=== PATIENT | female | born 1960 | race Caucasian/White ===

== ENCOUNTER → 2019-12-07 13:50 | Outpatient (CLI) | payer OTHER, SELFPAY ==
[2015-03-03 21:13] VITALS: BMI 34.2
== END ==
PROVIDERS: Referring Provider Family Medicine; Visit Provider Family Medicine
DX: Z11.59 Encounter for screening for other viral diseases (principal)
CPT/HCPCS: 87635; U0003

== ENCOUNTER → 2019-12-21 11:24 | Outpatient (CLI) | payer OTHER, SELFPAY ==
[2015-03-03 21:13] VITALS: BMI 34.2
== END ==
PROVIDERS: Referring Provider Family Medicine; Visit Provider Family Medicine
DX: Z11.59 Encounter for screening for other viral diseases (principal)
CPT/HCPCS: 87635; U0003

== ENCOUNTER → 2020-01-01 12:48 | Outpatient (CLI) | payer OTHER, SELFPAY | PROVIDERS: Visit Provider Family Medicine | DX: Z03.818 Encounter for observation for suspected exposure to other biological agents ruled out (principal) | CPT/HCPCS: 87635; U0003 ==

== ENCOUNTER → 2020-01-04 12:27 | Outpatient (CLI) | payer OTHER, SELFPAY ==
[2015-03-03 21:13] VITALS: BMI 34.2
== END ==
PROVIDERS: Referring Provider Family Medicine; Visit Provider Family Medicine
DX: Z03.818 Encounter for observation for suspected exposure to other biological agents ruled out (principal)
CPT/HCPCS: 87635; U0003

== ENCOUNTER → 2020-01-18 10:34 | Outpatient (CLI) | payer OTHER, SELFPAY ==
[2015-03-03 21:13] VITALS: BMI 34.2
== END ==
PROVIDERS: Referring Provider Family Medicine; Visit Provider Family Medicine
DX: Z03.818 Encounter for observation for suspected exposure to other biological agents ruled out (principal)
CPT/HCPCS: 87635; U0003

== ENCOUNTER → 2020-02-01 12:07 | Outpatient (CLI) | payer OTHER, SELFPAY ==
[2015-03-03 21:13] VITALS: BMI 34.2
== END ==
PROVIDERS: Referring Provider Family Medicine; Visit Provider Family Medicine
DX: Z03.818 Encounter for observation for suspected exposure to other biological agents ruled out (principal)
CPT/HCPCS: 87635; U0003

== ENCOUNTER 2022-09-13 08:55 | Emergency (ER) | payer OTHER, SELFPAY ==
[2022-09-13] VITALS (8 sets, daily range): BP systolic 102–191; BP diastolic 61–111; PULSE 50–59; RESP 14–19; TEMP 36.3; O2SAT 95–100
--- NOTE | 2022-09-13 08:59 | CT_ITS ---
HISTORY: Change in Mental Status. TECHNIQUE: Multiple axial images were obtained of the head without intravenous contrast. A radiation dose optimization technique was used for this scan. 239 images. COMPARISON: None. FINDINGS: BRAIN PARENCHYMA: No significant attenuation abnormality. No acute intra-axial hemorrhage. CSF SPACES: Cerebral ventricles, cortical sulci, and other extra-axial CSF spaces within normal limits in size for age. No midline shift or other significant mass effect. No acute extra-axial hemorrhage. Small calcification at the interventricular septum. OTHER: Intact calvarium. Chronic appearing right C1-2 fractures with mild mass effect on the craniocervical junction. No significant air fluid levels in the paranasal sinuses or mastoid air cells. Unremarkable orbits. CT/Brain/Head without Contrast IMPRESSION: No acute intracranial process identified. Electronically Signed: Barbi Estevez MD at 10:10 EDT ,
--- NOTE | 2022-09-13 08:59 | RAD_ITS ---
HISTORY: AMS. TECHNIQUE: XR Chest 1 View. COMPARISON: 03/03/2015. FINDINGS: CARDIOMEDIASTINAL BORDERS: Cardiac silhouette within normal limits in size. Mediastinal contour unremarkable with calcification of the aortic knob. LUNGS: Radiographically clear. PLEURA: No pleural effusion or pneumothorax seen. OSSEOUS STRUCTURES: Mild degenerative change. RAD/Chest 1 View (Portable) IMPRESSION: No acute cardiopulmonary process identified. Electronically Signed: Barbi Estevez MD at 10:11 EDT ,
--- NOTE | 2022-09-13 08:59 | EKG12_ITS ---
Test Reason : UNRESPONSIVE Blood Pressure : / mmHG Vent. Rate : 058 BPM Atrial Rate : 058 BPM P-R Int : 212 ms QRS Dur : 104 ms QT Int : 432 ms P-R-T Axes : 079 012 052 degrees QTc Int : 424 ms Sinus bradycardia with 1st degree A-V block Otherwise normal ECG Confirmed by HAI RICE, BERNADETTE ([id number]), editor in chief SULEMA MEHTA ([id number]) on 09/15/2022 9:08:56 AM Referred By: Confirmed By:BERNADETTE VALLES MD
[2022-09-13] MEDS: Ziprasidone IM 20 MG/ML VIAL IM (09:04)
[2022-09-13 09:21] LABS: Absolute Lymphocyte Count 2.44 X10^3/uL (0.83-4.51); Absolute Neutrophil Count 17.4 X10^3/uL (2.0-7.7); Basophil# 0.09 X10^3/uL; Basophil% 0.4 % (0-1); Eosinophil# 0.11 X10^3/uL; Eosinophils% 0.5 % (0-5); Hematocrit 43.4 % (37-47); Hemoglobin 15.3 g/dL (12.0-15.0); Lymphocyte # 2.44 X10^3/ul (0.83-4.51); Lymphocyte % 11.6 % (19-41); Mean Corp Hgb Conc 35.3 g/dL (32-36); Mean Corpuscular Hgb 30.4 pg (27.0-32.0); Mean Corpuscular Volume 86.3 fL (81-99); Monocyte# 0.97 X10^3/uL; Monocyte% 4.6 % (0-10); NRBC Flagged by Analyzer 0 % (0-5); Neutrophil # 17.36 X10^3/uL (2.7-7.7); Neutrophil % 82.5 % (47-70); Platelet Count 370 K/mm3 (150-450); RBC Distribution Width CV 12.1 % (11.6-14.6); RBC Distribution Width SD 38.5 fl (35.1-43.9); Red Blood Count 5.03 M/mm3 (4.2-5.4); White Blood Count 21.1 K/mm3 (4.4-11.0)
--- NOTE | 2022-09-13 09:22 | ED.RN ---
PT ARRIVES [facility]IA [facility], ON ARRIVAL TO ED SHE IS SCREAMING OUT AND THRASHING AROUND, SCRATCHING AND HITTING AT STAFF. THIS RN MAKES ATTEMPTS TO VERBALLY DE-ESCALATE PT. PT CONTINUES TO SCREAM , , . THIS RN ORIENTS PT TO LOCATION, TIME, AND DATE. PT CONTINUES TO THRASH ARMS AND LEGS, HITTING HEIDI MILLER. PT PLACED IN SOFT WRIST RESTRAINTS. DR. MAURICIO INFORMED.
[2022-09-13 09:38] LABS: Alcohol, Blood (Medical)-Serum < 3.0 mg/dL
--- NOTE | 2022-09-13 09:38 | ED.RN ---
pt going to imaging at this time, rn asked patient if she will stay calm in CT if I remove the restraints? Pt agrees. Restraints removed at this time.
--- NOTE | 2022-09-13 09:38 | ED.RN ---
TALCER NOTIFIED OF RESTRAINT APPLICATION AT 09.
[2022-09-13 09:44] LABS: Bacteria 0 SEEN /hpf (None Seen); Mucous, Urine 0 SEEN /hpf (<or=2+); Red Blood Cells-Urine 0 SEEN /hpf (0-5); Squamous Epithelial Cells - UA 0 SEEN /hpf (5-10); White Blood Cells 0 SEEN /hpf (0-5)
[2022-09-13 09:48] LABS: ALB/GLOB Ratio 1.1 RATIO (0.9-2.4); AST(SGOT) 19 U/L (15-37); Alanine Aminotransfer ALT/SGPT 24 U/L (13-56); Albumin, Serum 3.4 g/dL (3.2-5.0); Alkaline Phosphatase 132 U/L (45-117); Anion Gap 8 (5-15); BUN 12 mg/dL (7-18); BUN/Creat Ratio 13.9 RATIO (10-20); Calcium,Total 8.9 mg/dL (8.5-10.1); Chloride 106 mmol/L (98-107); Color, Urine Yellow (Yellow); Creatinine, Serum 0.86 mg/dL (0.55-1.02); EST Glomerular Filtration Rate 70 mL/min (>60); Est Glom Filt Rate - Afr Amer 85 mL/min (>60); Estimated Creatinine Clearance 81.91 ml/min; Globulin 3.2 g/dL (2.2-4.2); Glucose 182 mg/dL (74-106); Glucose, Dipstick Normal (Normal); Ketone-Dipstick 5 mg/dl (Negative); Leukocyte Esterase-Dipstick Negative /ul (Negative); Nitrite-Dipstick Negative (Negative); Occult Blood-Urine Negative /ul (Negative); Potassium 4.7 mmol/L (3.5-5.1); Protein, Total 6.6 g/dL (6.4-8.2); Protein-Dipstick 30 mg/dl (Negative); Sodium Level 136 mmol/L (136-145); Specific Gravity, Urine 1.015 (1.002-1.030); Urine Clarity Clear (Clear); Urine Urobilinogen Normal (Normal)
[2022-09-13 09:55] LABS: Amorphous Sediment 1+; Urine Bilirubin Dipstick 1 mg/dL (Negative)
[2022-09-13 10:02] LABS: Amphetamine Urine VISTA NEGATIVE (<1000 ng/mL); Barbiturate Urine VISTA NEGATIVE (< 200 ng/mL); Benzodiazepine Urine VISTA NEGATIVE (< 200 ng/mL); Cocaine Urine VISTA NEGATIVE (< 300 ng/mL); Ecstacy Urine VISTA NEGATIVE (< 500 ng/mL); Methadone Urine VISTA NEGATIVE (< 300 ng/mL); PCP Urine VISTA NEGATIVE (< 25 ng/mL); THC Urine VISTA NEGATIVE (< 50 ng/mL); Vista UDS pH Range 7
[2022-09-13] MEDS: levETIRAcetam IV 1,000 MG/100 ML BAG 400 MG IV (13:26)
--- NOTE | 2022-09-13 13:42 | EDS_ITS ---
HPI History of Present Illness Chief Complaint: Alt LOC Narrative Narrative: 61-year-old female presenting with altered mental status. Per squad report the patient was unresponsive. On arrival to the ER she is scratching at people and hitting people. She is screaming. She is unable to give me a history. PFSH PFS Medical History Anxiety Hypertension Home Medications clonazepam 1 mg tablet 0.1 mg PO DAILY 09/13/22 [History Last Taken Unknown] clonazepam 1 mg tablet 1 mg PO QHS 09/13/22 [History Last Taken Unknown] clonidine HCl 0.2 mg tablet 0.2 mg PO QHS 09/13/22 [History Last Taken Unknown] fluoxetine 40 mg capsule 40 mg PO DAILY 09/13/22 [History Last Taken Unknown] hydroxyzine HCl 25 mg tablet 25 mg PO BID PRN Anxiety 09/13/22 [History Last Taken Unknown] lisinopril 10 mg tablet 10 mg PO DAILY 09/13/22 [History Last Taken Unknown] lorazepam 0.5 mg tablet 0.5 mg PO Q8H 09/13/22 [History Last Taken Unknown] Allergy/AdvReac Type Severity Reaction Status Date / Time No Known Allergies Allergy Verified 03/03/15 21:17 Social History Smoking Status: Never smoker ROS ROS ED Review of Systems ROS Unobtainable: due to mental status EXAM Physical Exam Const Vital Signs: 09/13/22 08:58 09/13/22 08:57 09/13/22 09:50 Temperature 97.3 F L Temperature Source Temporal Pulse Rate 54 L 59 L Respiratory Rate 18 17 Blood Pressure 191/111 H 135/96 H Blood Pressure Mean 137 109 Pulse Ox 100 97 Oxygen Delivery Method Room Air Room Air 09/13/22 10:23 09/13/22 11:25 09/13/22 12:00 Temperature Temperature Source Pulse Rate 57 L 55 L 51 L Respiratory Rate 14 16 16 Blood Pressure 127/84 H 111/76 102/61 Blood Pressure Mean 98 87 74 Pulse Ox 98 95 98 Oxygen Delivery Method Room Air Room Air Room Air 09/13/22 13:02 Temperature Temperature Source Pulse Rate 53 L Respiratory Rate 19 H Blood Pressure 114/62 Blood Pressure Mean 79 Pulse Ox 96 Oxygen Delivery Method Room Air Positive well nourished General Appearance ED: NAD; Negative for pallor HEENT Reports moist mucous membranes Eyes PERRL and EOMs intact bilaterally Resp normal respiratory effort and clear to auscultation bilaterally Auscultation: Negative for rales, rhonchi or wheezes Cardio regular rate and regular rhythm GI normal to inspection, nondistended, normoactive bowel sounds Extremity normal to inspection Neuro CN's II-XII intact bilaterally Sensorium / Orientation: orientation impaired Motor Exam: strength 5/5 throughout Skin no rashes or lesions noted and no wounds General Skin Exam: Negative for jaundice or pallor MDM MDM MDM Narrative Medical decision making narrative: Patient arrived with altered mental status. She did not arrive with family and EMS states that she was unresponsive. There is no evidence of trauma on exam. She was a little hypertensive but otherwise her vitals runs are stable. She is protecting her airway. She is very agitated and swinging and scratching at nurses. Patient had to be chemically sedated with Geodon and was put in restraints. Differential includes medication overdose, stroke, intracranial hemorrhage, seizure, electrolyte abnormalities, anemia, alcohol intoxication, hypoglycemia, ACS, pneumonia, UTI. CBC to assess white blood cell count, hemoglobin, platelets, differential. CMP to assess liver function, renal function, glucose, anion gap. EtOH to assess for alcohol. Urine drug screen to assess for drugs of abuse. EKG and high-sensitivity troponin to assess for ischemia. Chest x-ray to rule out pneumonia. CT brain to assess for brain injury. CBC shows a leukocytosis of 21.1. Hemoglobin 15.3, platelets 370. Bilirubin slightly elevated otherwise liver function normal. Renal function, electrolytes within normal limits. Glucose 182 without anion gap. Urinalysis negative for infection. Urine drug screen is negative. Patient's arrived and he tells me that she was recently released from [facility] where she was then there for several weeks for depression and anxiety and just been discharged home a couple of days ago. Initially she was doing well and then she started to get worse. This morning she requested that he come late with her and he states that she started to have head shaking and then tonic-clonic seizing. He states that then she went unresponsive and EMS came to pick her up. It is possible that she was postictal when I initially evaluated her. It is unclear why as she was swinging and scratching at people. She is on benzodiazepines and her talk screen is negative so it is possible that she had a seizure from not taking her clonazepam. Her CT brain was negative. There has been no repeated seizure activity. Chest x-ray on my interpretation showed no acute cardiopulmonary process. Radiologist interprets and agrees. EKG on my interpretation is sinus bradycardia with a first-degree AV block. No evidence of ischemia. After speaking with the family I reached out to [facility] as they have been taking care of her and they also have neurology care since the patient apparently had a seizure and would likely benefit from an EEG. I spoke with a Dr. Olivera who was a neurologist at [facility] and he recommended transfer. He recommended giving her a gram of Keppra. She is more awake and alert and she is less combative at this point. Her consented to her transport. Impression: 1. Seizure 2. Agitation 3. Leukocytosis Lab Data Labs: Laboratory Results - last 24 hr 09/13/22 09/13/22 09/13/22 09:14 09:14 09:14 WBC 21.1 H RBC 5.03 Hgb 15.3 H Hct 43.4 MCV 86.3 MCH 30.4 MCHC 35.3 RDW Std Deviation 38.5 RDW Coeff of Zuri 12.1 Plt Count 370 MPV 9.0 Immature Gran % (Auto) 0.400 Neut % (Auto) 82.5 H Lymph % (Auto) 11.6 L Pitkin % (Auto) 4.6 Eos % (Auto) 0.5 Baso % (Auto) 0.4 Absolute Neuts (auto) 17.4 H Absolute Lymphs (auto) 2.44 Nucleated RBC % 0 Sodium 136 Potassium 4.7 Chloride 106 Carbon Dioxide 22.0 Anion Gap 8 BUN 12 Creatinine 0.86 Estim Creat Clear Calc 81.91 Est GFR (MDRD) Af Amer 85 Est GFR (MDRD) Non-Af 70 BUN/Creatinine Ratio 13.9 Glucose 182 H Calcium 8.9 Total Bilirubin 1.10 H AST 19 ALT 24 Alkaline Phosphatase 132 H Total Protein 6.6 Albumin 3.4 Globulin 3.2 Albumin/Globulin Ratio 1.1 Urine Color Urine Clarity Urine pH Ur Specific Omega Urine Protein Urine Glucose (UA) Urine Ketones Urine Occult Blood Urine Nitrite Urine Bilirubin Urine Urobilinogen Ur Leukocyte Esterase Urine RBC Urine WBC Ur Squamous Epith Cells Amorphous Sediment Urine Bacteria Urine Mucus Urine Opiates Screen Urine Methadone Screen Ur Barbiturates Screen Ur Phencyclidine Scrn Ur Amphetamines Screen MDMA (Ecstasy) Screen U Benzodiazepines Scrn Urine Cocaine Screen U Cannabinoids Screen Ur Drug Screen Comment Ethyl Alcohol < 3.0 09/13/22 09/13/22 09:14 09:25 WBC RBC Hgb Hct MCV MCH MCHC RDW Std Deviation RDW Coeff of Zuri Plt Count MPV Immature Gran % (Auto) Neut % (Auto) Lymph % (Auto) Pitkin % (Auto) Eos % (Auto) Baso % (Auto) Absolute Neuts (auto) Absolute Lymphs (auto) Nucleated RBC % Sodium Potassium Chloride Carbon Dioxide Anion Gap BUN Creatinine Estim Creat Clear Calc Est GFR (MDRD) Af Amer Est GFR (MDRD) Non-Af BUN/Creatinine Ratio Glucose Calcium Total Bilirubin AST ALT Alkaline Phosphatase Total Protein Albumin Globulin Albumin/Globulin Ratio Urine Color Yellow Urine Clarity Clear Urine pH 7.0 Ur Specific Omega 1.015 Urine Protein 30 H Urine Glucose (UA) Normal Urine Ketones 5 H Urine Occult Blood Negative Urine Nitrite Negative Urine Bilirubin 1 H Urine Urobilinogen Normal Ur Leukocyte Esterase Negative Urine RBC 0 SEEN Urine WBC 0 SEEN Ur Squamous Epith Cells 0 SEEN Amorphous Sediment 1+ Urine Bacteria 0 SEEN Urine Mucus 0 SEEN Urine Opiates Screen NEGATIVE Urine Methadone Screen NEGATIVE Ur Barbiturates Screen NEGATIVE Ur Phencyclidine Scrn NEGATIVE Ur Amphetamines Screen NEGATIVE MDMA (Ecstasy) Screen NEGATIVE U Benzodiazepines Scrn NEGATIVE Urine Cocaine Screen NEGATIVE U Cannabinoids Screen NEGATIVE Ur Drug Screen Comment Ethyl Alcohol Radiography Diagnostic Testing: Clinical Impression(s) from Imaging Studies Brain CT 09/13/22 08:59 IMPRESSION: No acute intracranial process identified. Electronically Signed: Barbi Estevez MD at 10:10 EDT , Chest X-Ray 09/13/22 08:59 IMPRESSION: No acute cardiopulmonary process identified. Electronically Signed: Barbi Estevez MD at 10:11 EDT , Discharge Plan Triage Chief Complaint: Alt LOC ED Provider: Jayy Moncada Dx/Rx/DC Orders Prescriptions: No Action fluoxetine 40 mg capsule 40 mg PO DAILY Label Comments: take 1 capsule by mouth daily clonazepam 1 mg tablet 0.1 mg PO DAILY Label Comments: take 1 tablet by mouth at bedtime if needed for insomnia clonazepam 1 mg tablet 1 mg PO QHS Label Comments: take 1 tablet by mouth at bedtime if needed for insomnia clonidine HCl 0.2 mg tablet 0.2 mg PO QHS Label Comments: take 1 tablet by mouth at bedtime lorazepam 0.5 mg tablet 0.5 mg PO Q8H Label Comments: take 1 tablet by mouth every 8 hours if needed for anxiety lisinopril 10 mg tablet 10 mg PO DAILY Label Comments: take 1 tablet by mouth once daily hydroxyzine HCl 25 mg tablet 25 mg PO BID PRN (Reason: Anxiety) Label Comments: take 1 tablet by mouth four times a day Primary Care Provider: Care Physician,No Primary Referrals: Care Physician,No Primary [Primary Care Provider] -
== END 2022-09-13 14:24 | disposition short-term general hospital (02) ==
PROVIDERS: Emergency Provider Student in an Organized Health Care Education/Training Program; Visit Provider Student in an Organized Health Care Education/Training Program
DX: R56.9 Unspecified convulsions (principal); R41.82 Altered mental status, unspecified; D72.829 Elevated white blood cell count, unspecified; I10 Essential (primary) hypertension; F41.9 Anxiety disorder, unspecified; Z79.899 Other long term (current) drug therapy
CPT/HCPCS: 70450; 71045; 80053; 80307; 81001; 82077; 85025; 87811; 93005; 96365; 96372; 99285; J7030; A4216

== ENCOUNTER → 2024-01-07 | Outpatient (CLI) | payer OTHER, SELFPAY | END | disposition home or self-care (01) | PROVIDERS: PCP Nurse Practitioner Family; Referring Provider Nurse Practitioner Family; Visit Provider Nurse Practitioner Family | DX: D68.59 Other primary thrombophilia (principal); Z82.49 Family history of ischemic heart disease and other diseases of the circulatory system; Z83.2 Family history of diseases of the blood and blood-forming organs and certain disorders involving the immune mechanism; Z13.220 Encounter for screening for lipoid disorders | CPT/HCPCS: 36415 ==

== ENCOUNTER 2024-01-30 21:59 | Emergency (ER) | payer OTHER, SELFPAY ==
[2024-01-30 22:00] VITALS: BP 220/93; PULSE 59; RESP 18; TEMP 36.4; O2SAT 98; BMI 34.0
[2024-01-30 22:20] VITALS: BP 135/67
[2024-01-30 22:46] LABS: Anion Gap 5 (5-15); BUN 9 mg/dL (7-18); BUN/Creat Ratio 11.5 RATIO (10-20); Calcium,Total 9.8 mg/dL (8.5-10.1); Chloride 107 mmol/L (98-107); Creatinine, Serum 0.78 mg/dL (0.55-1.02); EST Glomerular Filtration Rate 79 mL/min (>60); Est Glom Filt Rate - Afr Amer 95 mL/min (>60); Estimated Creatinine Clearance 79.16 ml/min; Glucose 108 mg/dL (74-106); Potassium 3.7 mmol/L (3.5-5.1); Sodium Level 139 mmol/L (136-145)
[2024-01-30 22:51] VITALS: BP 147/82; PULSE 63
[2024-01-30 22:59] VITALS: BP 147/82; PULSE 53; RESP 18; TEMP 36.6; O2SAT 96
== END 2024-01-30 23:00 | disposition home or self-care (01) ==
PROVIDERS: Emergency Provider Emergency Medicine; PCP Nurse Practitioner Family; Visit Provider Emergency Medicine
DX: I10 Essential (primary) hypertension (principal); F41.9 Anxiety disorder, unspecified; Z79.899 Other long term (current) drug therapy; R19.7 Diarrhea, unspecified
CPT/HCPCS: 80048; 99282